=== PATIENT | male | born 1960 | race Caucasian/White ===

== ENCOUNTER → 2017-01-14 | Outpatient (CLI) | payer BC ==
--- NOTE | 2017-01-14 16:17 | EKG ---
[address] [place] [address] Measurements Intervals [place] Rate: 54 P: 48 OR: 175 QRS: -71 QRSD: 103 T: 76 QT: 423 QTc: 409 Interpretive Statements SINUS BRADYCARDIA LEFT ANTERIOR FASCICULAR BLOCK POSSIBLE ANTERIOR MYOCARDIAL INFARCTION , PROBABLY OLD INFERIOR MYOCARDIAL INFARCTION [40+ ms Q WAVE AND/OR ST/T ABNORMALITY IN II/aVF], OF INDETERMINATE AGE No previous ECG available for comparison Electronically Signed On 01-14-17 17:03:47 MST by Juan José Arredondo [id number]
== END ==
LOC: EKG 16:20
PROVIDERS: ATTEND Specialist
DX: R00.2 Palpitations (principal); R00.1 Bradycardia, unspecified; I44.69 Other fascicular block; Z95.1 Presence of aortocoronary bypass graft
CPT/HCPCS: 93005; 93010

== ENCOUNTER → 2017-01-21 | Outpatient (CLI) | payer BC ==
--- NOTE | 2017-01-24 15:36 | HOLTER ---
[facility] Interpretive Statements Forty eight hour holter monitor done for palpitations, usually nocturnal or when reclining. There were 433140 beats recorded with 419061 normal beats. The minimum sinus rate was 39 with maximum rate of 124 and average rate of 63. t There were 65 VPCs, all singlets, with 34 PACs with 4 pairs, and no sustained supraventricular tachycardia. No diagnostic ST-T wave changes or pauses were noted. The patient recorded symptoms of SOB and delayed heart beat with isolated VPCs and on two occasions with isolated or paired PACs while watching television but did not note symptoms with ectopy while active. IMP: Mildly abnormal holter study with symptomatic isolated PVCs and PACs while at rest. No sustained tachycardia, bradycardia, or pauses and no symptoms with ectopy while physically active. Electronically Signed On 01-24-17 22:06:01 MDT by Juan José Arredondo [id number]
== END ==
LOC: RT 13:51
PROVIDERS: ATTEND Specialist
DX: R00.2 Palpitations (principal); Z95.1 Presence of aortocoronary bypass graft
CPT/HCPCS: 93225; 93226; 93227

== ENCOUNTER → 2017-01-28 | Outpatient (CLI) | payer BC ==
[2017-01-28 16:47] LABS: BLOOD UREA NITROGEN 16 mg/dL (7-22); CALCIUM 9.3 mg/dL (8.7-10.7); EST GLOMERULAR FILTRATION > 60 (>60 ml/min/1.73m(2)); MAGNESIUM 2.2 mg/dL (1.6-2.4)
== END ==
LOC: MOB LAB 14:57
PROVIDERS: ATTEND Specialist
DX: I49.9 Cardiac arrhythmia, unspecified (principal)
CPT/HCPCS: 36415; 80048; 83735

== ENCOUNTER → 2017-02-19 | Outpatient (CLI) | payer BC ==
--- NOTE | 2017-02-19 17:01 | DI ---
TESTICULAR ULTRASOUND, 02/19/2017 3:54 PM Clinical History: Testicular mass. Previous Exam: None. Scans are performed through both scrotal sacs in multiple projections using the high resolution linea r array probe. Color doppler ultrasound was also performed. Scans through both testicles show no evidence of a solid or cystic mass. The testicles are normal in size and appearance and demonstrate normal vascular perfusion. There is a small right hydrocele and t here is a small 4 mm cyst consistent with a right spermatocele. In the tail of the left epididymis is a complex mass that measures approximately 20 mm in diameter and has a thick "capsule" that is hyper vascular. Vascularity is also identified within the mass. Readin. In the tail of the left epididymis is a roughly 20 mm complex mass that is associated with a thic k "capsule" that is hypervascular and there is also vascularity within the solid portion of the lesio n. The remainder of the left epididymis is normal. The left testicle is also normal. 2. The right testicle is normal. There is a 4 mm spermatocele in the head of the right epididymis. T here is a small hydrocele.
== END ==
LOC: US 15:48
PROVIDERS: ATTEND Family Medicine
DX: N50.89 Other specified disorders of the male genital organs (principal); N43.41 Spermatocele of epididymis, single; N43.3 Hydrocele, unspecified
CPT/HCPCS: 76870

== ENCOUNTER → 2017-02-26 | Outpatient (CLI) | payer BC ==
[2017-02-26 08:42] LABS: BASOPHILS # (AUTO) 0.02 10*3/UL; BASOPHILS % (AUTO) 0.3 % (0-1); EOSINOPHILS # (AUTO) 0.05 10*3/UL; EOSINOPHILS % (AUTO) 0.7 % (0-8); HEMATOCRIT 46.5 % (42.0-52.0); HEMOGLOBIN 16.2 g/dL (14.0-18.0); LYMPHOCYTES # (AUTO) 3.04 10*3/uL; MEAN CORPUSCULAR HEMOGLOBIN 31.3 PG (27-31); MEAN CORPUSCULAR HGB CONC 34.8 g/dL (33-37); MEAN CORPUSCULAR VOLUME 89.8 FL (80-90); MEAN PLATELET VOLUME 9.6 FL (7.4-12.2); MONOCYTES # (AUTO) 0.65 10*3/UL (0.3-0.8); MONOCYTES % (AUTO) 8.5 % (5-15); NEUTROPHILS # (AUTO) 3.89 10*3/UL; NEUTROPHILS % (AUTO) 50.7 % (50-80); RED BLOOD COUNT 5.18 10^6/uL (4.70-6.10)
[2017-02-26 08:54] LABS: PLATELET MORPHOLOGY COMMENT NORMAL MORPHOLOGY (NORM); RBC MORPHOLOGY COMMENT NORMAL MORPHOLOGY (NORM); WBC MORPHOLOGY COMMENT NORMAL MORPHOLOGY (NORM)
[2017-02-26 09:13] LABS: BLOOD UREA NITROGEN 18 mg/dL (7-22); CALCIUM 8.9 mg/dL (8.7-10.7); EST GLOMERULAR FILTRATION > 60 (>60 ml/min/1.73m(2))
--- NOTE | 2017-02-26 09:13 | EKG ---
[address] [address] Measurements Intervals [place] Rate: 53 P: 50 [place]: 183 QRS: 268 QRSD: 105 T: 83 QT: 422 QTc: 405 Interpretive Statements SINUS BRADYCARDIA INDETERMINATE AXIS POSSIBLE ANTERIOR MYOCARDIAL INFARCTION [30 ms Q WAVE IN V3/V4, OR R < 0.2 mV IN V4], PROBABLY OLD INFERIOR MYOCARDIAL INFARCTION [40+ ms Q WAVE AND/OR ST/T ABNORMALITY IN II/aVF], PROBABLY OLD Compared to ECG 01/14/2017 17:14:50 Indeterminate axis now present Left anterior fascicular block no longer present Myocardial infarct finding still present Electronically Signed On 03-03-17 10:19:23 MDT by Trey Jacobs MD [id number]
== END ==
LOC: LAB 08:30
PROVIDERS: ATTEND Urology
DX: N50.89 Other specified disorders of the male genital organs (principal); R00.1 Bradycardia, unspecified
CPT/HCPCS: 36415; 80048; 85025; 93005; 93010

== ENCOUNTER → 2017-04-09 | Outpatient (CLI) | payer BC ==
[2017-04-09 08:18] LABS: HEMOGLOBIN A1C 6.52 % (4.2-6.0)
[2017-04-09 08:19] LABS: BLOOD UREA NITROGEN 16 mg/dL (7-22); CHOL/HDL RATIO 3.39 RATIO (0-4.0); EST GLOMERULAR FILTRATION > 60 (>60 ml/min/1.73m(2)); HDL CHOLESTEROL 38 mg/dL (40-150); SERUM ALBUMIN 4.3 g/dL (3.5-4.8); SERUM CHOLESTEROL 129 mg/dL (120-200)
[2017-04-09 08:20] LABS: CREATININE, URINE 132.7 MG/DL (15-500)
== END ==
LOC: LAB 07:57
PROVIDERS: ATTEND Internal Medicine
DX: E11.9 Type 2 diabetes mellitus without complications (principal); E78.5 Hyperlipidemia, unspecified; I10 Essential (primary) hypertension
CPT/HCPCS: 36415; 80053; 80061; 82043; 82550; 83036